=== PATIENT | female | born 1995 | race Caucasian/White ===

== ENCOUNTER 2016-11-21 15:21 | Emergency (ER) | payer OTHER ==
[~2016-11-21] VITALS: Ht 165.1 cm; Wt 62.1 kg
[2016-11-21 15:29] VITALS: BP 118/73; PULSE 68; TEMP 36.9; O2SAT 99; Ht 165.1 cm; Wt 62.1 kg
--- NOTE | 2016-11-21 15:54 | EMERGENCY ROOM VISIT NOTE ---
ED Visit Note First contact with patient: 15:31 CHIEF COMPLAINT: Needle stick left thumb HISTORY OF PRESENT ILLNESS: This 21-year-old female who works at [employer] presents to ER with chief complaint that she obtain a needle stick in the left thumb from a dirty needle while removing a needle from a patient's arm today. The patient washed out the wound very well at the time of the exposure. The source patient has agreed to testing. REVIEW OF SYSTEMS: 6 system review was performed and was negative unless stated otherwise in history of present illness. PMH: The patient is healthy; there is no significant medical history. Surgical history includes cholecystectomy, appendectomy, SOCIAL HISTORY: Patient lives with her parents. The patient denies tobacco use but admits to occasional alcohol use. PHYSICAL EXAM: Vital Signs are reviewed: Reviewed Nurse's notes and agree. GENERAL: 21 year-old white female appears in no acute distress. MENTAL status: Alert oriented x3. LEFT THUMB: There is a small puncture wound on the lateral aspect of the distal phalanx. No active bleeding noted. EMERGENCY DEPARTMENT COURSE: . Significant body fluid exposure was completed., Acute hepatitis panel and HIV testing was ordered. Informed consent for HIV antibody test was reviewed and signed. DIAGNOSIS: Significant body fluid exposure secondary to needle stick DISCHARGE INSTRUCTIONS: The hospital will contact you about your HIV results. He will need to contact medical records in 2 days to get her hepatitis panel results to release those to your employer. Vital Signs Date Time Temp Pulse Resp B/P (MAP) Pulse Ox O2 Delivery O2 Flow Rate FiO2 11/21/16 15:29 36.9 68 18 118/73 99 Room Air Laboratory Results Test 11/21/16 15:49 Departure Information Referrals No Doctor, Assigned (PCP) Patient Instructions My [facility]
[2016-11-21] MEDS ORDERED: MULT-506 PO (16:00)
[2016-11-21] MEDS ORDERED: LORA-741 PO (16:00)
[2016-11-21] MEDS ORDERED: CITA40TA12 PO (16:00)
== END 2016-11-21 15:56 | disposition home or self-care (01) ==
LOC: C.EDB 15:23 → C.EDD 15:56
DX: S61.032A Puncture wound without foreign body of left thumb without damage to nail, initial encounter (principal); W46.1XXA Contact with contaminated hypodermic needle, initial encounter; Y99.0 Civilian activity done for income or pay; Z90.49 Acquired absence of other specified parts of digestive tract